=== PATIENT | female | born 1945 | race Caucasian/White ===

== ENCOUNTER 2017-02-04 06:16 | Day surgery (SDC) | payer OTHER ==
[~2017-02-04] VITALS: Ht 162.6 cm; Wt 85.5 kg
[~2017-02-04 06:16] MED LIST: SODIUM CHLORIDE 0.9% 1,000 ML IV ONE
[2017-02-04] MEDS ORDERED: ALBUTEROL SULFATE 2.5 MG/0.5 ML NEB SOLUTION NEB ONE (06:17)
[2017-02-04] MEDS ORDERED: LIDOCAINE HCL 2% 30 ML JELLY TP ONE (06:17)
[2017-02-04] MEDS ORDERED: LIDOCAINE HCL 4% 50 ML SOLUTION TP ONE (06:17)
[2017-02-04] MEDS ORDERED: BENZOCAINE 20% 50 MCG/SPRAY 57 GM TP ONE (06:17)
[2017-02-04] MEDS ORDERED: HYDR25TA PO (07:18)
[2017-02-04] MEDS ORDERED: ERGO400T7 PO (07:18)
[2017-02-04] MEDS ORDERED: DORZ10DR13 OU (07:18)
[2017-02-04] MEDS ORDERED: ASPI81 PO (07:18)
[2017-02-04] MEDS ORDERED: POTA25TA7 PO (07:18)
[2017-02-04] MEDS ORDERED: SIMV-260 PO (07:18)
[2017-02-04] MEDS ORDERED: LOSA50TA37 PO (07:18)
[2017-02-04] MEDS ORDERED: LEVO75 PO (07:18)
[2017-02-04] MEDS ORDERED: FentaNYL CITRATE-PF 100 MCG/2 ML VIAL ONE (07:41)
[2017-02-04] MEDS ORDERED: MIDAZOLAM HCL 2 MG/2 ML VIAL ONE (07:41)
[2017-02-04] MEDS ORDERED: MethylPREDNISolone SOD SUCC 125 MG/2 ML VIAL IVP ONE (08:45)
[2017-02-04] MEDS ORDERED: MethylPREDNISolone SOD SUCC 125 MG/2 ML VIAL ONE (08:49)
[2017-02-04] MEDS ORDERED: OXYGEN THERAPY IH SCH (20:00)
== END 2017-02-04 10:25 | disposition home or self-care (01) ==
LOC: SURGERY 06:16
PROVIDERS: ATTEND Internal Medicine Critical Care Medicine
DX: J38.4 Edema of larynx (principal); B37.0 Candidal stomatitis; I10 Essential (primary) hypertension; H40.9 Unspecified glaucoma; M19.90 Unspecified osteoarthritis, unspecified site; E78.00 Pure hypercholesterolemia, unspecified; Z90.49 Acquired absence of other specified parts of digestive tract; Z98.890 Other specified postprocedural states; Z86.11 Personal history of tuberculosis; Z87.891 Personal history of nicotine dependence; Z87.01 Personal history of pneumonia (recurrent)
CPT/HCPCS: 31623; 31624; 71010; 87015 ×2; 87070; 87101; 87205; 87220; 88108; 88312; 93005; J2250; J2930; J3010; J7030

== ENCOUNTER 2024-06-05 06:17 | Day surgery (SDC) | payer OTHER ==
[~2024-06-05] VITALS: Ht 162.6 cm; Wt 84.5 kg
[~2024-06-05 06:17] MED LIST changes: +ASPI-1450 PO; +DORZ10DR32 OU; +ERGO400T7 PO; +HYDR25TA2 PO; +LEVO75 PO; +LOSA-382 PO; +POTA25TA7 PO; +SIMV-260 PO; -SODIUM CHLORIDE 0.9% 1,000 ML IV ONE
[2024-06-05] MEDS ORDERED: SODIUM CHLORIDE 0.9% 1,000 ML ONE (07:11)
[2024-06-05] MEDS ORDERED: POTA-203 PO (07:23)
[2024-06-05] MEDS ORDERED: LOSA100T59 PO (07:23)
[2024-06-05] MEDS ORDERED: METO25 PO (07:23)
[2024-06-05] MEDS ORDERED: LEVO88TA7 PO (07:23)
[2024-06-05] MEDS ORDERED: EZET10TA57 PO (07:23)
[2024-06-05] MEDS ORDERED: RANO500T27 PO (07:23)
[2024-06-05] MEDS ORDERED: ISOS60TA77 PO (07:23)
[2024-06-05] MEDS ORDERED: ATOR-2 PO (07:23)
[2024-06-05] MEDS: SODIUM CHLORIDE 0.9% 1,000 ML IV ONE (07:39)
[2024-06-05] MEDS ORDERED: FentaNYL CITRATE PF 100 MCG/2 ML VIAL ONE (08:21)
[2024-06-05] MEDS ORDERED: MIDAZOLAM HCL 2 MG/2 ML VIAL ONE (08:21)
[2024-06-05 09:22] VITALS: PULSE 69; RESP 18; O2SAT 96
[2024-06-05] MEDS ORDERED: MethylPREDNISolone SOD SUCC 125 MG/2 ML VIAL ONE (09:54)
[2024-06-05] MEDS: MethylPREDNISolone SOD SUCC 125 MG/2 ML VIAL IVP ONE (09:58)
== END 2024-06-05 13:05 | disposition home or self-care (01) ==
LOC: SURGERY 06:17
PROVIDERS: ATTEND Internal Medicine Critical Care Medicine
DX: J38.4 Edema of larynx (principal); B37.0 Candidal stomatitis; I10 Essential (primary) hypertension; E03.9 Hypothyroidism, unspecified; E78.00 Pure hypercholesterolemia, unspecified; M19.90 Unspecified osteoarthritis, unspecified site; Z79.899 Other long term (current) drug therapy; Z98.890 Other specified postprocedural states; Z90.49 Acquired absence of other specified parts of digestive tract; Z95.5 Presence of coronary angioplasty implant and graft; Z95.0 Presence of cardiac pacemaker; Z87.891 Personal history of nicotine dependence; Z86.73 Personal history of transient ischemic attack (TIA), and cerebral infarction without residual deficits; Z79.82 Long term (current) use of aspirin
CPT/HCPCS: 31623; 87206; 87101; 87220; 87070; 88108; 31624; 71045; 87015; 93005; J3010; J2250; J2919; J7030